=== PATIENT | female | born 1985 | race Caucasian/White ===

== ENCOUNTER 2024-03-23 06:32 | Day surgery (SDC) | payer BC, OTHER ==
[2024-03-23] MEDS: Scopalamine 1mg/3day Transdermal Patch TOP ONE (06:55)
[2024-03-23] MEDS ORDERED: Bupivacaine 0.25% 30 ML SDV ONE ×2 (07:10→07:12)
[2024-03-23] MEDS ORDERED: Ropivacaine 0.5% 5 MG/ML 30 ML SDV ONE (07:10)
[2024-03-23] MEDS ORDERED: Morphine 10 MG/ML SDV ONE (07:11)
[2024-03-23] MEDS ORDERED: Methylene Blue 50 MG/10 ML Ampule ONE (07:12)
[2024-03-23] MEDS ORDERED: propofoL 500 MG/50 ML 50 ML ONE ×2 (07:21→08:28)
[2024-03-23] MEDS ORDERED: dexmedeTOMIDine HCl 200 MCG/2 ML SDV ONE (07:22)
[2024-03-23] MEDS ORDERED: Water For Injection, Sterile 20 ML ONE (07:22)
[2024-03-23] MEDS ORDERED: Rocuronium Bromide 50 MG/5 ML Syringe ONE ×2 (07:22→08:43)
[2024-03-23] MEDS ORDERED: Phenylephrine HCl In 0.9% NaCl 1 MG/10 ML Syringe IVPUSH PRN (07:23)
[2024-03-23] MEDS ORDERED: Metoclopramide 10 MG/2 ML SDV IVPUSH PRN (07:23)
[2024-03-23] MEDS ORDERED: fentaNYL 50 MCG/ML SDV IVPUSH PRN (07:23)
[2024-03-23] MEDS ORDERED: Naloxone 0.4 MG/ML SDV IVPUSH PRN (07:23)
[2024-03-23] MEDS ORDERED: Albuterol 0.083% 2.5 MG/3 ML Neb Soln NEB PRN (07:23)
[2024-03-23] MEDS ORDERED: Ondansetron 4 MG/2 ML SDV IVPUSH PRN ×2 (07:23→09:59)
[2024-03-23] MEDS ORDERED: Morphine 2 MG/ML SYRINGE IVPUSH PRN (07:23)
[2024-03-23] MEDS ORDERED: Propofol 200 MG/20 ML SDV ONE (07:24)
[2024-03-23] MEDS ORDERED: fentaNYL 100 MCG/2 ML SDV ONE (07:24)
[2024-03-23] MEDS: Lactated Ringers 1,000 ML IV SCH (07:27)
[2024-03-23] MEDS ORDERED: Ketamine HCL/NACL, ISO-OSM 50 MG/5 ML Syringe ONE (07:29)
[2024-03-23 07:47] LABS: CALCIUM 9.4 mg/dL (8.5-10.1); CARBON DIOXIDE,CO2 30.4 mmol/L (21.0-32.0); CREATININE 0.9 mg/dL (0.6-1.0); EST CRCL DRUG DOSING (CG) 69.42 mL/min; POTASSIUM,K 3.8 mmol/L (3.5-5.1)
[2024-03-23] MEDS ORDERED: ceFAZolin 2 GM Vial ONE (08:11)
[2024-03-23] MEDS ORDERED: Dexamethasone 4 MG/ML 5 ML MDV ONE (08:18)
[2024-03-23] MEDS ORDERED: Ondansetron 4 MG/2 ML SDV ONE (08:18)
[2024-03-23] MEDS ORDERED: Fluorescein 5 ML Vial ONE (08:59)
[2024-03-23] MEDS ORDERED: Tranexamic Acid 1,000 MG/10 ML Vial ONE (09:02)
[2024-03-23] MEDS ORDERED: Ketorolac 30 MG/ML SDV ONE (09:12)
[2024-03-23] MEDS ORDERED: Sugammadex Sodium 200 MG/2 ML VIAL IV ONE (09:12)
[2024-03-23] MEDS ORDERED: Morphine 4 MG/ML Syringe IVPUSH PRN (09:59)
[2024-03-23] MEDS ORDERED: Acetaminophen/oxyCODONE 325-5 MG Tab PO PRN (09:59)
[2024-03-23] MEDS: HYDROmorphone 1 MG/ML Syringe IVPUSH PRN (10:11)
[2024-03-23] MEDS: Ketorolac 30 MG/ML SDV IVPUSH PRN (16:01)
[2024-03-23] MEDS: Acetaminophen/oxyCODONE 325-5 MG Tab PO PRN (19:50)
[2024-03-24 06:11] LABS: BASOPHILS ABSOLUTE AUTO 0.04 K/uL (0.00-0.20); BASOPHILS PERCENT AUTO 0.2 % (0.0-1.0); EOSINOPHILS ABSOLUTE AUTO 0.03 K/uL (0.00-0.45); EOSINOPHILS PERCENT AUTO 0.2 % (0.0-6.0); HEMATOCRIT 35.5 % (37.0-47.0); HEMOGLOBIN 12.2 g/dL (12.0-16.0); IMMATURE GRAN ABSOLUTE AUTO 0.08 K/uL (0.00-0.05); IMMATURE GRAN PERCENT AUTO 0.4 % (0.0-0.4); LYMPHOCYTES PERCENT AUTO 22.1 % (24.0-44.0); MEAN CORPUSCULAR HEMOGLOBIN 29.3 pg (28.0-32.0); MEAN CORPUSCULAR HGB CONC 34.4 g/dL (32.0-36.0); MEAN CORPUSCULAR VOLUME 85.1 fL (83.0-99.0); MEAN PLATELET VOLUME 8.9 fL (9.4-12.3); MONOCYTES ABSOLUTE AUTO 1.07 K/uL (0.00-0.80); MONOCYTES PERCENT AUTO 5.5 % (0.0-8.0); NEUTROPHILS ABSOLUTE AUTO 13.94 K/uL (1.80-7.70); NEUTROPHILS PERCENT AUTO 71.6 % (41.0-71.0); PLATELET COUNT,PLT 283 K/uL (150-400); RED BLOOD CELL COUNT 4.17 M/uL (4.10-5.30); WHITE BLOOD CELL COUNT,WBC 19.46 K/uL (3.9-11.3)
[2024-03-24 06:31] LABS: CALCIUM 8.2 mg/dL (8.5-10.1); CARBON DIOXIDE,CO2 29.7 mmol/L (21.0-32.0); EST CRCL DRUG DOSING (CG) 62.48 mL/min; POTASSIUM,K 3.7 mmol/L (3.5-5.1)
== END 2024-03-24 10:05 | disposition home or self-care (01) ==
LOC: MW.SDS 06:32 → MW.OB 11:09 → MW.SDS 03-24 10:05
PROVIDERS: ATTEND Obstetrics & Gynecology
DX: D06.0 Carcinoma in situ of endocervix (principal); N72 Inflammatory disease of cervix uteri; D25.1 Intramural leiomyoma of uterus; D25.2 Subserosal leiomyoma of uterus; N80.03 Adenomyosis of the uterus; E03.9 Hypothyroidism, unspecified; Z88.2 Allergy status to sulfonamides; Z79.899 Other long term (current) drug therapy; Z79.890 Hormone replacement therapy
CPT/HCPCS: 36415; 58552; 80048; 85025; 86850; 86900; 86901; A9270; J0131; J0665; J0690; J1100; J1171; J1885; J2272; J2704; J2795; J3010; J3490; J7120; J2405